=== PATIENT | male | born 1955 | race Caucasian/White ===

== ENCOUNTER → 2022-11-06 14:41 | Outpatient (BNVA) | payer MEDICARE, SELFPAY | PROVIDERS: PCP Nurse Practitioner Family; Visit Provider Nurse Practitioner Family | DX: N52.9 Male erectile dysfunction, unspecified (principal); Z13.6 Encounter for screening for cardiovascular disorders | CPT/HCPCS: 80053; 80061; 85025 ==

== ENCOUNTER → 2022-11-12 14:19 | Outpatient (BNVA) | payer MEDICARE, SELFPAY | PROVIDERS: PCP Nurse Practitioner Family; Visit Provider Nurse Practitioner Family | DX: L81.9 Disorder of pigmentation, unspecified (principal); Z13.6 Encounter for screening for cardiovascular disorders | CPT/HCPCS: 85025 ==

== ENCOUNTER 2023-01-04 09:05 | Day surgery (SDC) | payer MEDICARE, SELFPAY ==
[2023-01-03 09:06] VITALS: BMI 26.4
[2023-01-04 09:19] VITALS: BP 138/86; PULSE 66; RESP 20; TEMP 36.1; O2SAT 100
[2023-01-04] MEDS: sodium chloride 0.9% 1,000 ML 30 ML IV (09:31)
--- NOTE | 2023-01-04 09:32 | ANES.PREANE2 ---
Pre-Anesthetic Assessment Height/Weight: Height 1.8 m Weight 86.183 kg Temp Pulse Resp BP Pulse Ox O2 Del Method 97 F L 66 20 H 138/86 100 Room Air 01/04/23 09:19 01/04/23 09:19 01/04/23 09:19 01/04/23 09:19 01/04/23 09:19 01/04/23 09:19 Preop Diagnosis: screening Operation Date: 01/04/23 10:00 Proposed Procedures p Colonoscopy 45680, Z12.11(Not Applicable) - Hitesh Norwood DO Familial anesthetic complications: none Was Beta Donovan taken within 24 hours: N/A Was Clonidine taken within 24 hours: N/A Last intake: Intake Last Liquid Date 01/03/23 Last Liquid Time 23:55 Last Solid Date 01/02/23 Last Solid Time 17:00 Social Tobacco and No alcohol 2 pack(s) per day smoked this AM Exam alert and oriented x 3 Airway Submandibular: within normal limits Cervical ROM: within normal limits Mallampati: Class II Dentition: full History/ROS No significant history except as noted Pulmonary None reported CV/HEM None reported None reported Hepatic None reported GI Gastroesophageal Reflux Disease Metabolic None reported Musc/skel None reported Neuropsych None reported Anesthetic Plan ASA status: 2 Anesthesia: Anesthesia Evaluation, General and MAC Medications/Allergies Home Medications Medication Instructions Recorded Confirmed Last Taken Type omeprazole 40 mg capsule,delayed 40 mg PO DAILY 11/06/22 01/03/23 01/03/23 History release paroxetine HCl 40 mg tablet 40 mg PO DAILY 11/06/22 01/03/23 01/03/23 History white petrolatum 41 % topical 1 applic topical BID PRN dry skin 11/12/22 01/03/23 01/03/23 Rx ointment (Aquaphor Healing) #396 grams multivitamin 1 tab PO DAILY 01/03/23 01/03/23 01/03/23 History Allergies Allergy/AdvReac Type Severity Reaction Status Date / Time No Known Allergies Allergy Verified 01/03/23 09:03 Current Medications Generic Name Dose Route Start Last Admin Trade Name Freq PRN Reason Stop Dose Admin Sodium Chloride 1,000 mls @ 30 mls/hr 01/04/23 09:15 01/04/23 09:31 Sodium Chloride 0.9% IV 01/05/23 09:14 30 mls/hr .Q24H KARI Administration Data Anesthesia Cardiac Studies: No Data to Display
--- NOTE | 2023-01-04 09:52 | PM.HP ---
Providers/Chief Complaint Primary Care Provider: Kristen Diane NP Chief Complaint: Z12.11 History of Present Illness Joao Rivera is a 67 year old male who is here for his first colon cancer screening. He denies any family history of colon cancer, abdominal pain, nausea, emesis, diarrhea, constipation, hematochezia and/or melena. Medications/Allergies Home Medications Medication Instructions Recorded Confirmed Last Taken Type omeprazole 40 mg capsule,delayed 40 mg PO DAILY 11/06/22 01/03/23 01/03/23 History release paroxetine HCl 40 mg tablet 40 mg PO DAILY 11/06/22 01/03/23 01/03/23 History white petrolatum 41 % topical 1 applic topical BID PRN dry skin 11/12/22 01/03/23 01/03/23 Rx ointment (Aquaphor Healing) #396 grams multivitamin 1 tab PO DAILY 01/03/23 01/03/23 01/03/23 History Allergies Allergy/AdvReac Type Severity Reaction Status Date / Time No Known Allergies Allergy Verified 01/03/23 09:03 Vitals/I&O/Wt Last Vital Signs Temp 97 F L 01/04/23 09:19 Pulse 66 01/04/23 09:19 Resp 20 H 01/04/23 09:19 BP 138/86 01/04/23 09:19 Pulse Ox 100 01/04/23 09:19 O2 Del Method Room Air 01/04/23 09:19 Weight last 48 hrs Weight 190 lb A&P Assessment and plan (1) Colon cancer screening: Plan Screening colonoscopy The risks and benefits of the procedure, including bleeding, infection, intestinal perforation requiring surgery, missed lesion were explained to the patient. The patient is understanding of the risks and wishes to proceed. Attestations Medical Necessity Statement*: Home Coding Level of Care Code Acute Code for Chg Fwd Diagnoses Colon cancer screening Z12.11
[2023-01-04 10:14] VITALS: BP 99/76; PULSE 61; RESP 10; TEMP 36.1; O2SAT 92
[2023-01-04 10:20] VITALS: BP 99/68; PULSE 64; RESP 16; O2SAT 97
--- NOTE | 2023-01-04 10:20 | ANE.PACU2 ---
Inpatient post-anesthesia follow up: Airway intact: Yes Vital signs: Temperature 97.0 F Pulse Rate 64 Respiratory Rate 16 Blood Pressure 99/68 Pulse Oximetry 97 Oxygen Delivery Me thod Room Air Oxygen Flow Rate Fraction of Inspir ed Oxygen Hydration adequate: Yes Nausea and vomiting: No Pain level: 1 Mental status: Baseline
== END 2023-01-04 10:36 | disposition home or self-care (01) ==
PROVIDERS: PCP Nurse Practitioner Family; Visit Provider Surgery
PROC: 0DJD8ZZ Inspection of Lower Intestinal Tract, Via Natural or Artificial Opening Endoscopic (ICD-10-PCS; CPT 45378; principal; 2023-01-04 10:00)
DX: Z12.11 Encounter for screening for malignant neoplasm of colon (principal); K21.9 Gastro-esophageal reflux disease without esophagitis; K57.30 Diverticulosis of large intestine without perforation or abscess without bleeding
CPT/HCPCS: G0121; J2704; J7030

== ENCOUNTER → 2023-02-05 16:28 | Outpatient (BNVA) | payer MEDICARE, SELFPAY | PROVIDERS: PCP Nurse Practitioner Family; Visit Provider Nurse Practitioner Family | DX: F32.A Depression, unspecified (principal); K21.9 Gastro-esophageal reflux disease without esophagitis; R74.8 Abnormal levels of other serum enzymes | CPT/HCPCS: 80053 ==

== ENCOUNTER 2024-05-15 14:49 | Outpatient (CLI) | payer MEDICARE, SELFPAY ==
--- NOTE | 2024-05-15 14:52 | USCV_ITS ---
Joao Rivera Age: 69 Gender: M : 1955 Exam Date: 05/15/2024 15:44 Ordering Phys: Anusha Russell Technologist: Alonso Sullivan Exam Location: [facility] [place] Indication: SCREENING HISTORY: Diameter (cm) AP x Transverse x Length Velocity (cm/s) Waveform Prox Aorta: 5.88 x 6.23 x Mid Aorta: 7.29 x 8.53 x 12.80 10.00 Distal Aorta: 5.84 x 6.11 x 10.70 Right Iliac Prox: 1.08 x 1.48 x Left Iliac Prox: 1.21 x 1.42 x 151.60 Stent Prox Landing x x Aneurysmal Sac Max x x Lt Lat Sac Dim Rt Lat Sac Dim Stent Dist Landing x x Right Iliac Stent x x Left Iliac Stent x x Right Renal Art Left Renal Art FINDINGS: CONCLUSIONS Large fusiform Abdominal aortic aneurysm Mid aorta measuring 7.29 x 8.53cm extending over approximately 12.8cm Associated peripheral mural thrombus. No intramural hematoma. No comparisons Normal iliac arteries Also, proximal and distal AAA measuring 5.8 x 6.2cm proximal and 5.8 x 6.1cm distal Transportation Department Supervisor Discussed with nurse Wilhelm at time of exam 1605 05/15/24. Ordering provider not currently available Recommended patient proceed to ER for futher evaluation. Patient escorted to ER at 1613 [address] Gu MD (Electronically Signed) Final Date: 15 May 2024 16:14 S
== END 2024-05-15 14:50 | disposition home or self-care (01) ==
LOC: RAD 14:51
PROVIDERS: PCP Nurse Practitioner; Visit Provider Nurse Practitioner
DX: I71.40 Abdominal aortic aneurysm, without rupture, unspecified (principal); F17.200 Nicotine dependence, unspecified, uncomplicated
CPT/HCPCS: 76706

== ENCOUNTER 2024-05-15 16:21 | Emergency (ER) | payer MEDICARE, SELFPAY ==
[2024-05-15] VITALS (19 sets, daily range): BP systolic 115–146; BP diastolic 63–101; PULSE 56–72; RESP 15–18; TEMP 36.4; O2SAT 92–99; BMI 27.8
--- NOTE | 2024-05-15 16:51 | CTR_ITS ---
PROCEDURE INFORMATION: Exam: CTA Right Lower Extremity With Contrast Exam date and time: 05/15/2024 5:57 PM Clinical indication: Other: Abnormal US; Patient HX: Patient found to have large aaa on outpatient US earlier today. Patient denies any complaints. TECHNIQUE: Imaging protocol: Computed tomographic angiography of the right lower extremity with contrast. 3D rendering (Not supervised by radiologist): MIP and/or 3D reconstructed images were created by the technologist. COMPARISON: No relevant prior studies available. FINDINGS: Right femoral/popliteal arteries: There is scattered atherosclerotic plaque in the right common femoral, femoral, profunda femoral, and popliteal arteries without significant stenosis. Atherosclerotic plaque is present in the right anterior tibialis, posterior tibialis, and peroneal arteries. No flow is seen within the distal right anterior tibialis artery. Right infrapopliteal arteries: See Right femoral/popliteal arteries finding. Bones/joints: No acute fracture. No dislocation. Soft tissues: There is edema in the soft tissues. PROCEDURE INFORMATION: Exam: CTA Left Lower Extremity With Contrast Exam date and time: 05/15/2024 5:57 PM Age: 69 years old Clinical indication: Other: Abnormal US; Patient HX: Patient found to have large aaa on outpatient US earlier today. Patient denies any complaints. TECHNIQUE: Imaging protocol: Computed tomographic angiography of the left lower extremity with contrast. 3D rendering (Not supervised by radiologist): MIP and/or 3D reconstructed images were created by the technologist. Radiation optimization: All CT scans at this facility use at least one of these dose optimization techniques: automated exposure control; mA and/or kV adjustment per patient size (includes targeted exams where dose is matched to clinical indication); or iterative reconstruction. Contrast material: OMNI 350; Contrast volume: 80 ml; Contrast route: INTRAVENOUS (IV); COMPARISON: CT ang karl abdpel [id number] 05/15/2024 5:51 PM RADIATION DOSE METRICS: Total DLP (mGy-cm): 774.26 FINDINGS: Left femoral/popliteal arteries: There is scattered atherosclerotic plaque in the left common femoral, femoral, profunda femoral, and popliteal arteries without significant stenosis. Atherosclerotic plaque is present in the left anterior tibialis, posterior tibialis, and peroneal arteries with no flow seen distally. Left infrapopliteal arteries: See Left femoral/popliteal arteries finding. Bones/joints: No acute fracture. No dislocation. Soft tissues: There is edema in the soft tissues. Other findings: Please see the CT angiogram of the chest abdomen and pelvis for description of the aortic aneurysm with intramural hematoma and pelvic viscera and vessels as they are only partially visualized on these images. [place] [id number] IMPRESSION: Atherosclerotic plaque is present in the right anterior tibialis, posterior tibialis, and peroneal arteries. No flow is seen within the distal right anterior tibialis artery. IMPRESSION: Atherosclerotic plaque is present in the left anterior tibialis, posterior tibialis, and peroneal arteries with no flow seen distally.
--- NOTE | 2024-05-15 16:59 | ED_ITS ---
HPI - Recheck/Abnormal Lab/Rx 2 General: Chief Complaint: Recheck/Abnormal Lab/Rx Stated Complaint: came from imaging - blockage in aorta Time Seen by Provider: 05/15/24 16:45 History of Present Illness: 69-year-old man who presents emergency r oom from imaging after an ultrasound was done of his aorta that showed AAA. He says that he is not exactly sure why his primary ordered the study but apparently it was something to do with him having a lump in his abdomen. He has no symptoms. No abdominal pain. No chest pain. No shortness of breath. No claudication. No leg pain or swelling. Related Data Home Medications Medication Instructions Recorded Confirmed multivitamin 1 tab PO DAILY 01/03/23 08/14/23 Previous Rx's Medication Instructions Recorded white petrolatum 41 % topical 1 applic topical BID PRN dry skin 11/12/22 ointment (Aquaphor Healing) #396 grams paroxetine HCl 40 mg tablet 40 mg PO DAILY #90 tabs 12/09/23 omeprazole 40 mg capsule,delayed See Rx Instructions .Route 12/10/23 release .COMPLEX #90 caps Allergies Allergy/AdvReac Type Severity Reaction Status Date / Time No Known Allergies Allergy Verified 02/05/23 08:58 Review of Systems 2 Narrative: Constitutional symptoms: Negative except as documented in HPI. Skin symptoms: Negative except as documented in HPI. Eye symptoms: Negative except as documented in HPI. ENMT symptoms: Negative except as documented in HPI. Respiratory symptoms: Negative except as documented in HPI. Cardiovascular symptoms: Negative except as documented in HPI. Gastrointestinal symptoms: Negative except as documented in HPI. Genitourinary symptoms: Negative except as documented in HPI. Musculoskeletal symptoms: Negative except as documented in HPI. Neurologic symptoms: Negative except as documented in HPI. Psychiatric symptoms: Negative except as documented in HPI. Endocrine symptoms: Negative except as documented in HPI. Physical Exam 2 Narrative: EXAM NARRATIVE: General: Alert, no acute distress. Skin: Warm, dry. Head: Normocephalic, atraumatic. Neck: Supple, trachea midline. Eye: Extraocular movements are intact. Ears, nose, mouth and throat: mucosa moist. Cardiovascular: Regular, Normal peripheral perfusion. Respiratory: Lungs are clear to auscultation, respirations are non-labored, breath sounds are equal, Symmetrical chest wall expansion. Gastrointestinal: Soft, Nontender, Non distended, there is a palpable mass in the middle of the abdomen. Musculoskeletal: Normal ROM, no deformity. Neurological: Alert and oriented, No focal neurological deficit observed. Psychiatric: Cooperative, appropriate mood & affect. Course 2 Vital Signs: Vital signs: Vital Signs Temperature 97.5 F L 05/15/24 16:27 Pulse Rate 57 L 05/15/24 20:00 Respiratory Rate 15 05/15/24 20:00 Blood Pressure 133/91 05/15/24 20:00 Pulse Oximetry 93 05/15/24 20:00 Oxygen Delivery Me thod Room Air 05/15/24 19:18 MDM - Recheck/Abnormal Lab/Rx Medical Decision Making Medical decision making: Differential diagnosis including but not limited to and based on the above HPI, review of systems and physical exam: Orders placed to evaluate differential diagnosis based on the above differential, HPI and physical exam Consultation: I spoke with Dr. José Miguel Crystal who is a vascular surgeon at [facility]. He recommends CTA with runoff. Apparently the of the patient does not like [facility] as she had worked there at some point and she plans to go to [facility]. EKG: Time 1705. Rate 60. Normal sinus rhythm, pulmonary pattern. Incomplete right bundle branch block. Left anterior fascicular block. No ectopy., This was reviewed and interpreted by myself the ER physician at 1710. Lab Review: Laboratory results were reviewed and interpreted by myself the emergency room physician. Lab work is unremarkable. No leukocytosis. No anemia. No renal failure. I reviewed the patient's medical record. Reexamination: Patient remained stable. No increased work of breathing. No altered mental status. No focal motor deficits. A hard palpable masses evident in the patient's abdomen. He has no pain with palpation of this. CT of the aorta of the chest abdomen pelvis with runoff Pulmonary arteries: Normal. No pulmonary emboli. Aorta: Aortic root is aneurysmal measuring 5.3 cm. Ascending thoracic aorta is upper limits of normal in caliber measuring 4.0 cm. No thoracic aortic dissection. Infrarenal abdominal aorta is aneurysmal measuring 8.4 x 9.0 x 13.4 cm in the AP/transverse/craniocaudad dimensions. There is crescentic aortic thickening in the aneurysmal region consistent with intramural hematoma with several foci of active bleeding into the intramural hematoma. Celiac trunk and mesenteric arteries: No occlusion or significant stenosis. Renal arteries: No occlusion or significant stenosis. Right iliac arteries: No occlusion or significant stenosis. Left iliac arteries: No occlusion or significant stenosis. Thyroid: Left thyroid lobe is enlarged and heterogeneous. CHEST: Lungs: Unremarkable. No consolidation. No masses. Pleural spaces: Unremarkable. No pneumothorax. No pleural effusion. Heart: Unremarkable. No cardiomegaly. No pericardial effusion. Coronary arteries: Multivessel atherosclerotic disease which involves the coronary arteries. Esophagus: There is mucosal thickening of the esophagus. ABDOMEN AND PELVIS: Liver: No mass. Gallbladder and biliary ducts: Unremarkable. No calcified stones. No ductal dilation. Pancreas: Unremarkable. No mass. No ductal dilation. Spleen: Unremarkable. No splenomegaly. Adrenal glands: Unremarkable. No mass. Kidneys and ureters: Punctate nonobstructing right renal calculus. There are subcentimeter cysts with benign features in the left kidney. 2.7 cm cyst off the medial aspect of the right kidney has benign features. Follow-up is not necessary. Stomach and bowel: There is diverticulosis of the colon without evidence of diverticulitis. Appendix: A normal appendix is identified. Intraperitoneal space: Unremarkable. No free air. No significant fluid collection. Urinary bladder: Unremarkable. No mass. Reproductive: Prostate gland is heterogeneous, enlarged, and indents the base of the bladder. Lymph nodes: Unremarkable. No enlarged lymph nodes. Bones/joints: There are degenerative changes in the visualized spine. Soft tissues: Tiny fat containing umbilical hernia. CT/CT [facility] [id number] IMPRESSION: 1. Large infrarenal abdominal aortic aneurysm with associated intramural hematoma. There are several foci of active bleeding into the region of intramural hematoma. 2. Aortic root is aneurysmal measuring 5.3 cm. 3. Prostate gland is heterogeneous, enlarged, and indents the base of the bladder. 4. Esophageal mucosal thickening consistent with esophagitis. Follow-up to exclude neoplasm as clinically warranted. Consultation: I spoke with Dr. Sanchez with cardiovascular surgery at [facility]. Was not been able to review the films but given the size feels this needs at least urgently repaired. Not necessarily emergently tonight. Consultation: I spoke with Dr. Seymour in the emergency room at [facility] in [place] and he accepts the patient ER to ER. Assessment and plan: AAA intramural hematoma - Discussed findings and plan with patient. Answered any questions. - All laboratory values were reviewed and interpreted personally by myself, the ER physician - All imaging was reviewed and interpreted personally by myself, the ER physician. - Evaluation and treatment of this problem were appropriate in the emergency setting Lab Data 05/15/24 17:02 05/15/24 17:02 Radiology Impressions Lower Extremity CTA 05/15/24 16:51 IMPRESSION: Atherosclerotic plaque is present in the right anterior tibialis, posterior tibialis, and peroneal arteries. No flow is seen within the distal right anterior tibialis artery. IMPRESSION: Atherosclerotic plaque is present in the left anterior tibialis, posterior tibialis, and peroneal arteries with no flow seen distally. Chest/Abdomen/Pelvis CTA 05/15/24 17:48 IMPRESSION: 1. Large infrarenal abdominal aortic aneurysm with associated intramural hematoma. There are several foci of active bleeding into the region of intramural hematoma. 2. Aortic root is aneurysmal measuring 5.3 cm. 3. Prostate gland is heterogeneous, enlarged, and indents the base of the bladder. 4. Esophageal mucosal thickening consistent with esophagitis. Follow-up to exclude neoplasm as clinically warranted. COMMENTS: Consistent with the [employer]'s Incidental Findings Committee white paper (J Am Francesca Radiol 2018): Any incidental renal lesion less than 1 cm or classified as too small to characterize, or any incidental cystic renal lesion characterized as simple-appearing, is likely benign. No follow-up imaging is recommended for these lesions per consensus recommendations based on imaging criteria. ADDENDUM: 05/15/24 [id number] CRITICAL RESULT: The study was personally discussed on the telephone with CANDELARIA Bell on 05/15/2024 6:39 PM PIANO TECHNICIAN. The results were understood and acknowledged. Laboratory Results WBC 7.08 10^3/uL (3.29-11.43) 05/15/24 17:02 RBC 4.73 10^6/uL (3.85-5.65) 05/15/24 17:02 Hgb 15.20 g/dL (11.27-16.99) 05/15/24 17:02 Hct 45.4 % (37-53) 05/15/24 17:02 MCV 96.0 fl (82-101) 05/15/24 17:02 MCH 32.1 pg (27-33) 05/15/24 17:02 MCHC 33.5 g/dL (30-55) 05/15/24 17:02 RDW 12.5 % (12.1-15.1) 05/15/24 17:02 Plt Count 171 10^3/cmm (157-399) 05/15/24 17:02 MPV 9.4 fL (7.4-10.4) 05/15/24 17:02 Neut % (Auto) 59.5 % 05/15/24 17:02 Lymph % (Auto) 28.7 % 05/15/24 17:02 Hamlin % (Auto) 7.8 % 05/15/24 17:02 Eos % (Auto) 3.0 % 05/15/24 17:02 Baso % (Auto) 0.7 % 05/15/24 17:02 Neut # (Auto) 4.22 10^3/uL (1.8-7.7) 05/15/24 17:02 Lymph # (Auto) 2.0 10^3/uL (0.8-4.8) 05/15/24 17:02 Hamlin # (Auto) 0.6 10^3/uL (0.2-0.9) 05/15/24 17:02 Eos # (Auto) 0.2 10^3/uL (0.0-0.8) 05/15/24 17:02 Baso # (Auto) 0.1 10^3/uL (0.0-0.1) 05/15/24 17:02 Nucleated RBC % (auto) 0 % 05/15/24 17:02 Nucleated RBCs # 0.0 /100WBC 05/15/24 17:02 Sodium 138 mmol/L (136-145) 05/15/24 17:02 Potassium 3.9 mmol/L (3.5-5.1) 05/15/24 17:02 Chloride 101 mmol/L (98-107) 05/15/24 17:02 Carbon Dioxide 29 mmol/L (22-29) 05/15/24 17:02 Anion Gap 11.9 (5-19) 05/15/24 17:02 BUN 13 mg/dL (8-23) 05/15/24 17:02 Creatinine 0.7 mg/dL (0.7-1.2) 05/15/24 17:02 GFR Calculation 111.5 mL/min (90-130) 05/15/24 17:02 Glucose 91 mg/dL (65-115) 05/15/24 17:02 Calculated Osmolality 286 mOsm/kg (285-295) 05/15/24 17:02 Calcium 9.4 mg/dL (8.5-10.5) 05/15/24 17:02 Total Bilirubin 0.4 mg/dL (0.15-1.2) 05/15/24 17:02 AST 15 U/L (0-40) 05/15/24 17:02 ALT 11 U/L (0-41) 05/15/24 17:02 Alkaline Phosphatase 63 U/L (40-130) 05/15/24 17:02 Total Protein 6.2 g/dL (6.6-8.7) L 05/15/24 17:02 Albumin 3.9 g/dL (3.5-5.2) 05/15/24 17:02 Globulin 2.3 g/dL (1.3-4.6) 05/15/24 17:02 All radiology interpretation(s) finalized by discharge Discharge Plan Discharge Patient Disposition: Xfer Short-Term Hosp Clinical Impression: Abdominal aortic aneurysm, Intramural aortic hematoma Condition: Stable Referrals: Anusha Russell FNP [Primary Care Provider] - Coding Level of Care Code ED Exercise Physiologist for Antony Gonzalez
--- NOTE | 2024-05-15 17:05 | ECG_ITS ---
[employer] Test Date: 2024-05-15 Pat Name: Joao Rivera Department: Room: Gender: Male Cotton Header: : 1955 Requested By: Sherri Pugh Order Number: [id number] Kathia MD: Lex Baker M.D. Measurements Intervals [place] Rate: 60 P: 56 NM: 136 QRS: -73 QRSD: 102 T: 25 QT: 444 QTc: 444 Interpretive Statements SUPRAVENTRICULAR RHYTHM S1-S2-S3 PATTERN, CONSISTENT WITH PULMONARY DISEASE, RVH, OR NORMAL VARIANT PATTERN CONSISTENT WITH PULMONARY DISEASE INCOMPLETE RIGHT BUNDLE BRANCH BLOCK [90+ ms QRS DURATION, TERMINAL R IN V1/V2, 40+ ms S IN I/aVL/V4/V5/V6] LEFT ANTERIOR FASCICULAR BLOCK [QRS AXIS <= -45, QR IN I, RS IN II] No previous ECG available for comparison Electronically Signed On 05-16-2024 10:21:20 [employer]ING GANG [employer]ER by Lex Baker M.D. [email or web address]
[2024-05-15 17:07] LABS: Basophils # 0.1 10^3/uL (0.0-0.1); Basophils % 0.7 %; Eosinophils # 0.2 10^3/uL (0.0-0.8); Hematocrit 45.4 % (37-53); Lymphocytes % 28.7 %; Mean Corpuscular HGB Conc 33.5 g/dL (30-55); Mean Corpuscular Hemoglobin 32.1 pg (27-33); Mean Platelet Volume 9.4 fL (7.4-10.4); Monocytes # 0.6 10^3/uL (0.2-0.9); Monocytes % 7.8 %; Neutrophils # 4.22 10^3/uL (1.8-7.7); Neutrophils % 59.5 %; Nucleated Red Blood Cells % 0 %; Platelet Count 171 10^3/cmm (157-399); Red Blood Count 4.73 10^6/uL (3.85-5.65); Red Cell Distribution Width 12.5 % (12.1-15.1); White Blood Count 7.08 10^3/uL (3.29-11.43)
[2024-05-15 17:25] LABS: Alanine Aminotransferase 11 U/L (0-41); Albumin Level 3.9 g/dL (3.5-5.2); Alkaline Phosphatase 63 U/L (40-130); Anion Gap 11.9 (5-19); Aspartate Amino Transferase 15 U/L (0-40); Blood Urea Nitrogen 13 mg/dL (8-23); Calcium 9.4 mg/dL (8.5-10.5); Carbon Dioxide 29 mmol/L (22-29); Chloride 101 mmol/L (98-107); Creatinine Clr Calc Pharmacy 99.0053; Globulin 2.3 g/dL (1.3-4.6); Glomerular Filtration Rate 111.5 mL/min (90-130); Glucose 91 mg/dL (65-115); Osmolality Calculated 286 mOsm/kg (285-295); Potassium 3.9 mmol/L (3.5-5.1); Sodium 138 mmol/L (136-145); Total Bilirubin 0.4 mg/dL (0.15-1.2); Total Protein 6.2 g/dL (6.6-8.7)
--- NOTE | 2024-05-15 17:48 | CTR_ITS ---
PROCEDURE INFORMATION: Exam: CTA Chest With Contrast CTA Abdomen and Pelvis With Contrast Exam date and time: 05/15/2024 5:51 PM Age: 69 years old Clinical indication: Other: Abnormal US; Patient HX: Patient found to have large aaa on outpatient US earlier today. Patient denies any complaints. TECHNIQUE: Imaging protocol: Computed tomographic angiography of the chest with contrast. Exam focused on the arteries. Computed tomographic angiography of the abdomen and pelvis with contrast. Exam focused on the arteries. 3D rendering (Not supervised by radiologist): MIP and/or 3D reconstructed images were created by the technologist. Radiation optimization: All CT scans at this facility use at least one of these dose optimization techniques: automated exposure control; mA and/or kV adjustment per patient size (includes targeted exams where dose is matched to clinical indication); or iterative reconstruction. Contrast material: OMNI 350; Contrast volume: 80 ml; Contrast route: INTRAVENOUS (IV); COMPARISON: No relevant prior studies available. RADIATION DOSE METRICS: Total DLP (mGy-cm): 1124.78 FINDINGS: VASCULATURE: Pulmonary arteries: Normal. No pulmonary emboli. Aorta: Aortic root is aneurysmal measuring 5.3 cm. Ascending thoracic aorta is upper limits of normal in caliber measuring 4.0 cm. No thoracic aortic dissection. Infrarenal abdominal aorta is aneurysmal measuring 8.4 x 9.0 x 13.4 cm in the AP/transverse/craniocaudad dimensions. There is crescentic aortic thickening in the aneurysmal region consistent with intramural hematoma with several foci of active bleeding into the intramural hematoma. Celiac trunk and mesenteric arteries: No occlusion or significant stenosis. Renal arteries: No occlusion or significant stenosis. Right iliac arteries: No occlusion or significant stenosis. Left iliac arteries: No occlusion or significant stenosis. Thyroid: Left thyroid lobe is enlarged and heterogeneous. CHEST: Lungs: Unremarkable. No consolidation. No masses. Pleural spaces: Unremarkable. No pneumothorax. No pleural effusion. Heart: Unremarkable. No cardiomegaly. No pericardial effusion. Coronary arteries: Multivessel atherosclerotic disease which involves the coronary arteries. Esophagus: There is mucosal thickening of the esophagus. ABDOMEN AND PELVIS: Liver: No mass. Gallbladder and biliary ducts: Unremarkable. No calcified stones. No ductal dilation. Pancreas: Unremarkable. No mass. No ductal dilation. Spleen: Unremarkable. No splenomegaly. Adrenal glands: Unremarkable. No mass. Kidneys and ureters: Punctate nonobstructing right renal calculus. There are subcentimeter cysts with benign features in the left kidney. 2.7 cm cyst off the medial aspect of the right kidney has benign features. Follow-up is not necessary. Stomach and bowel: There is diverticulosis of the colon without evidence of diverticulitis. Appendix: A normal appendix is identified. Intraperitoneal space: Unremarkable. No free air. No significant fluid collection. Urinary bladder: Unremarkable. No mass. Reproductive: Prostate gland is heterogeneous, enlarged, and indents the base of the bladder. Lymph nodes: Unremarkable. No enlarged lymph nodes. Bones/joints: There are degenerative changes in the visualized spine. Soft tissues: Tiny fat containing umbilical hernia. CT/CT ang [facility] [id number] IMPRESSION: 1. Large infrarenal abdominal aortic aneurysm with associated intramural hematoma. There are several foci of active bleeding into the region of intramural hematoma. 2. Aortic root is aneurysmal measuring 5.3 cm. 3. Prostate gland is heterogeneous, enlarged, and indents the base of the bladder. 4. Esophageal mucosal thickening consistent with esophagitis. Follow-up to exclude neoplasm as clinically warranted. COMMENTS: Consistent with the [employer]'s Incidental Findings Committee white paper (J Am Francesca Radiol 2018): Any incidental renal lesion less than 1 cm or classified as too small to characterize, or any incidental cystic renal lesion characterized as simple-appearing, is likely benign. No follow-up imaging is recommended for these lesions per consensus recommendations based on imaging criteria.
[2024-05-15] MEDS: iohexol 350 mg/mL 500 mL Btl (per mL) IV (18:03)
--- NOTE | 2024-05-15 21:08 | PC.NURSE ---
Report called to Jaleesa Dickinson at [phone] to Jina Sanabria RN.
--- NOTE | 2024-05-15 23:15 | PC.NURSE ---
Number to call [facility] when pt leaves to give [facility] estimated ETA upon pt leaving is [phone].
--- NOTE | 2024-05-15 23:16 | PC.NURSE ---
PT report given to John FUNK at [phone].
[2024-05-16 00:02] VITALS: BP 132/95; PULSE 60; RESP 18; O2SAT 93
== END 2024-05-15 23:45 | disposition short-term general hospital (02) ==
PROVIDERS: Emergency Provider Emergency Medicine; PCP Nurse Practitioner
DX: I71.40 Abdominal aortic aneurysm, without rupture, unspecified (principal); I71.02 Dissection of abdominal aorta
CPT/HCPCS: 71275; 73706; 74174; 80053; 85025; 93005; 99285

== ENCOUNTER 2025-03-24 09:32 | Outpatient (CLI) | payer MEDICARE, SELFPAY ==
--- NOTE | 2025-03-24 09:35 | USR_ITS ---
PROCEDURE INFORMATION: Exam: US Soft Tissue Head and Neck, Thyroid Exam date and time: 03/24/2025 9:54 AM Age: 70 years old Clinical indication: Condition or disease; Thyroid disorder; Other: Nodule; Additional info: Thyroid nodule TECHNIQUE: Imaging protocol: Real-time ultrasound scan of the neck with image documentation. Exam focused on the thyroid. COMPARISON: CT ang [facility] [id number] 05/15/2024 5:51 PM FINDINGS: Right thyroid lobe: The right thyroid lobe measures 4.3 x 2.1 x 1.1 cm and demonstrates a single 1.1 cm rounded nodule lying in the lateral portion of the lobe anteriorly. This nodule has a spongiform consistency and well-circumscribed orders. Left thyroid lobe: The left thyroid lobe measures 4.4 x 3.2 x 2.7 cm and demonstrates a large lobulated nodule occupying most of the left lobe. The nodule extends further down into the mediastinum and is difficult to measure. The main portion of the nodule measures some where around 4.4 cm in greatest diameter. Isthmus: No nodules. US/US thyroid [id number] IMPRESSION: 1. Large left thyroid nodule. I favor this to represent a benign finding. However, due to the large size I can not totally exclude malignancy 2. Small benign-appearing nodule of the right lobe
== END 2025-03-24 09:33 | disposition home or self-care (01) ==
LOC: RAD 09:34
PROVIDERS: PCP Nurse Practitioner; Visit Provider Nurse Practitioner
DX: E04.2 Nontoxic multinodular goiter (principal)
CPT/HCPCS: 76536